=== PATIENT | female | born 1985 | race American Indian/Alaskan Native ===

== ENCOUNTER 2018-08-12 20:10 | Emergency (ER) | payer OTHER ==
[2018-08-12 20:16] VITALS: BP 155/74
--- NOTE | 2018-08-12 20:34 | Emergency Department Report ---
Blank Doc - Documentation Documentation: 33 y/o female comes in rt ankle pain after having a syncopal episode.
--- NOTE | 2018-08-12 21:03 | XRay Report ---
PROCEDURE: XR ANKLE 3+V RT TECHNIQUE: Right ankle radiographs, AP, lateral, and oblique views. HISTORY: right ankle pain COMPARISONS: None . FINDINGS: Fracture (s) and/or Dislocation(s): There is mild degree of irregularity of the posterior margin of distal tibial metaphysis suspicious for a small fracture. . Alignment: Normal . Joint space(s): Normal . Soft tissues: Moderate degree of soft tissue swelling is noted over the lateral malleolus . Bone mineralization: Normal . Foreign bodies: None . Calcaneal spurring: None . IMPRESSION: Possible small fracture involving the posterior margin of distal tibial metaphysis. Clini janes correlation is recommended. CT may be recommended for further evaluation. This document is electronically signed by Rashard Miranda MD., Aug 12 2018 09:01:47 PM ET
[2018-08-12 22:07] LABS: Hematocrit 28.7 % (30.3-42.9); Hemoglobin 8.6 gm/dl (10.1-14.3); Mean Corpuscular HGB Conc 30 % (30-34); Platelet Count 347 K/mm3 (140-440); Red Blood Count 4.72 M/mm3 (3.65-5.03)
[2018-08-12 22:11] LABS: Mean Corpuscular Volume 61 fl (79-97); Red Cell Distribution Width 20.4 % (13.2-15.2)
[2018-08-12 22:24] LABS: Alanine Aminotransferase 7 units/L (7-56); Albumin 4.4 g/dL (3.9-5); BUN/Creatinine Ratio 8; Blood Urea Nitrogen 5 mg/dL (7-17); Calcium 10.8 mg/dL (8.4-10.2); Hemolysis Index 0
[2018-08-13 00:16] LABS: Basophils % (Manual) 0 % (0.0-1.8); Total Cells Counted 100
[2018-08-13 00:17] LABS: Hypochromasia 2+
[2018-08-13 00:18] LABS: Target Cells Few; Tear Drop Cells 1+
[2018-08-13 00:22] LABS: Large Platelets 1+; Platelet Estimate Consistent w Auto
--- NOTE | 2018-08-13 01:06 | Emergency Department Report ---
ED Lower Extremity HPI - General Chief Complaint: Extremity Injury, Lower Stated Complaint: RT ANKLE PAIN Time Seen by Provider: 08/13/18 01:04 Source: patient, family Mode of arrival: Wheelchair Limitations: No Limitations - History of Present Illness Initial Comments: This is a 33-year-old female here reports that she is woken at a gas station and then fell and rolled her right ankle. She complained of ankle pain at 10 out of 10 with swelling. She said this happened today. She also said that she is homeless. Denies any head injury, back pain and abdominal pain. Location: Right ankle Duration: This evening when Quality: Throbbing and aching in Severity: Severe Modifying factors: [Better with rest and aggravated by walking, movement and to touch Context: Rolled her ankle while walking in Mode of transportation: She walked to the ED MD Complaint: ankle injury -: This evening Injury: Ankle: Right (right ankle) Type of Injury: eversion Severity: severe Severity scale (0 -10): 10 Improves With: rest Worsens With: weight bearing, movement, palpation Context: walking Associated Symptoms: able to partially bear weight. denies: snap/pop sensation ( ), swelling, numbness, tingling Treatments Prior to Arrival: NSAIDS - Related Data Previous Rx's Medication Instructions Recorded Last Taken Type Ferrous Sulfate [Feosol 325 MG tab] 325 mg PO BID 30 Days #60 tablet 08/13/18 Unknown Rx Ibuprofen [Motrin] 800 mg PO Q8HR PRN #12 tablet 08/13/18 Unknown Rx Allergies Allergy/AdvReac Type Severity Reaction Status Date / Time acetaminophen [From Tylenol] Allergy Vomiting Verified 08/12/18 20:17 ED Review of Systems ROS: Stated complaint: RT ANKLE PAIN Other details as noted in HPI Constitutional: denies: chills, fever Respiratory: denies: cough, shortness of breath, SOB with exertion, wheezing Cardiovascular: denies: chest pain, palpitations, edema, syncope Gastrointestinal: denies: abdominal pain, nausea, vomiting Musculoskeletal: joint swelling, arthralgia. denies: back pain, myalgia Skin: denies: rash Neurological: denies: headache, weakness, numbness, abnormal gait, vertigo ED Past Medical Hx - Past Medical History Previous Medical History?: No - Surgical History Past Surgical History?: Yes Additional Surgical History: c section, hernia - Family History Family history: hypertension - Social History Smoking Status: Never Smoker Substance Use Type: None - Medications Home Medications: Home Medications Medication Instructions Recorded Confirmed Last Taken Type Ferrous Sulfate [Feosol 325 MG tab] 325 mg PO BID 30 Days #60 tablet 08/13/18 Unknown Rx Ibuprofen [Motrin] 800 mg PO Q8HR PRN #12 tablet 08/13/18 Unknown Rx ED Physical Exam - General Limitations: No Limitations General appearance: alert, in no apparent distress - Head Head exam: Present: atraumatic, normocephalic - Eye Eye exam: Present: normal appearance, PERRL, EOMI Pupils: Present: normal accommodation - ENT ENT exam: Present: normal exam, normal orophraynx, mucous membranes moist, TM's normal bilaterally, normal external ear exam - Neck Neck exam: Present: normal inspection, full ROM. Absent: tenderness, lymphadenopathy - Respiratory Respiratory exam: Present: normal lung sounds bilaterally. Absent: respiratory distress, chest wall tenderness - Cardiovascular Cardiovascular Exam: Present: regular rate, normal rhythm, normal heart sounds. Absent: systolic murmur, diastolic murmur - GI/Abdominal GI/Abdominal exam: Present: soft, normal bowel sounds. Absent: distended, tenderness, guarding, rebound, rigid - Extremities Exam Extremities exam: Present: normal inspection, full ROM (right ankle), tenderness (tender to palpate the right ankle), normal capillary refill, joint swelling (swelling to the right ankle). Absent: pedal edema - Expanded Lower Extremity Exam Right Hip exam: Present: normal inspection, full ROM. Absent: tenderness, swelling Upper Leg exam: Present: normal inspection, full ROM. Absent: tenderness, swelling Knee exam: Present: normal inspection, full ROM, full knee extension. Absent: tenderness, swelling Lower Leg exam: Present: normal inspection, full ROM. Absent: tenderness, swelling, Jeremiah's sign Ankle exam: Present: tenderness, swelling. Absent: normal inspection, full ROM (Limited range of motion right ankle), abrasion, laceration, ecchymosis, deformity, crepidus, dislocation, erythema Foot/Toe exam: Present: normal inspection, full ROM. Absent: tenderness, swelling, abrasion, laceration, ecchymosis, deformity, crepidus, dislocation, erythema, amputation, puncture wound, foreign body, calcaneal tenderness, tenderness at base of 5th metatarsal, nail avulsion, subungual hematoma Neuro vascular tendon exam: Present: no vascular compromise, significant pain with passive ROM of distal joint. Absent: pulse deficit, abnormal cap refill, motor deficit, sensory deficit, tendon deficit, extremity cold to touch, pallor, abnormal 2-point discrimination, decreased fine/light touch, foot drop, peroneal nerve deficit Gait: Positive: observed and normal - Back Exam Back exam: Present: normal inspection, full ROM. Absent: tenderness, CVA tenderness (R), CVA tenderness (L), muscle spasm, paraspinal tenderness, vertebral tenderness, rash noted - Neurological Exam Neurological exam: Present: alert, oriented X3, abnormal gait (abnormal gait due to ankle injury), reflexes normal - Psychiatric Psychiatric exam: Present: normal affect, normal mood - Skin Skin exam: Present: warm, dry, intact, normal color. Absent: rash ED Course Vital Signs 08/12/18 08/12/18 20:13 20:15 Temperature 98.7 F 98.7 F Pulse Rate 92 H 95 H Respiratory 18 18 Rate Blood Pressure 155/74 155/74 O2 Sat by Pulse 100 100 Oximetry - Reevaluation(s) Reevaluation #1: 08/13/18 04:03 Patient given Motrin 800 mg. Emergency room and posterior right ankle splint placed with recheck and patient with good color, movement, sensation and temperature to toes of right foot status post splint placement. - Orthopedic Splinting/Casting Injury #1 Side: right Lower Extremity Injury Location: ankle Lower Extremity Immobilizer: posterior splint Other Orthopedic Equipment: crutches ED Lower Extremity MDM - Lab Data Result diagrams: 08/12/18 20:57 08/12/18 20:57 Lab Results 08/12/18 08/12/18 08/12/18 Range/Units 20:57 20:57 20:57 WBC 10.4 (4.5-11.0) K/mm3 RBC 4.72 (3.65-5.03) M/mm3 Hgb 8.6 L (10.1-14.3) gm/dl Hct 28.7 L (30.3-42.9) % MCV 61 L (79-97) fl MCH 18 L (28-32) pg MCHC 30 (30-34) % RDW 20.4 H (13.2-15.2) % Plt Count 347 (140-440) K/mm3 Add Manual Diff Complete Total Counted 100 Seg Neuts % (Manual) 68.0 (40.0-70.0) % Band Neutrophils % 0 % Lymphocytes % (Manual) 27.0 (13.4-35.0) % Reactive Lymphs % (Man) 0 % Monocytes % (Manual) 4.0 (0.0-7.3) % Eosinophils % (Manual) 1.0 (0.0-4.3) % Basophils % (Manual) 0 (0.0-1.8) % Metamyelocytes % 0 % Myelocytes % 0 % Promyelocytes % 0 % Blast Cells % 0 % Nucleated RBC % Not Reportable Seg Neutrophils # Man 7.1 (1.8-7.7) K/mm3 Band Neutrophils # 0.0 K/mm3 Lymphocytes # (Manual) 2.8 (1.2-5.4) K/mm3 Abs React Lymphs (Man) 0.0 K/mm3 Monocytes # (Manual) 0.4 (0.0-0.8) K/mm3 Eosinophils # (Manual) 0.1 (0.0-0.4) K/mm3 Basophils # (Manual) 0.0 (0.0-0.1) K/mm3 Metamyelocytes # 0.0 K/mm3 Myelocytes # 0.0 K/mm3 Promyelocytes # 0.0 K/mm3 Blast Cells # 0.0 K/mm3 WBC Morphology Not Reportable TNR Hypersegmented Neuts Not Reportable Hyposegmented Neuts Not Reportable Hypogranular Neuts Not Reportable Smudge Cells Not Reportable Toxic Granulation Not Reportable Toxic Vacuolation Not Reportable Dohle Bodies Not Reportable Pelger-Huet Anomaly Not Reportable Altagracia Rods Not Reportable Platelet Estimate Consistent w auto Clumped Platelets Not Reportable Plt Clumps, EDTA Not Reportable Large Platelets 1+ Giant Platelets Not Reportable Platelet Satelliting Not Reportable Plt Morphology Comment Not Reportable RBC Morphology Not Reportable Dimorphic RBCs Not Reportable Polychromasia Not Reportable Hypochromasia 2+ Poikilocytosis Not Reportable Anisocytosis Not Reportable Microcytosis 2+ Macrocytosis Not Reportable Spherocytes Not Reportable Pappenheimer Bodies Not Reportable Sickle Cells Not Reportable Target Cells Few Tear Drop Cells 1+ Ovalocytes Not Reportable Helmet Cells Not Reportable [place] Bodies Not Reportable [place] Rings Not Reportable Cas Cells Not Reportable Bite Cells Not Reportable Crenated Cell Not Reportable Elliptocytes Not Reportable Acanthocytes (Spur) Not Reportable Rouleaux Not Reportable Hemoglobin C Crystals Not Reportable Schistocytes Not Reportable Malaria parasites Not Reportable Hayden Bodies Not Reportable Hem Pathologist Commnt No Sodium 137 (137-145) mmol/L Potassium 4.0 (3.6-5.0) mmol/L Chloride 102.0 (98-107) mmol/L Carbon Dioxide 21 L (22-30) mmol/L Anion Gap 18 mmol/L BUN 5 L (7-17) mg/dL Creatinine 0.6 L (0.7-1.2) mg/dL Estimated GFR > 60 ml/min BUN/Creatinine Ratio 8 % Glucose 109 H (65-100) mg/dL Calcium 10.8 H (8.4-10.2) mg/dL Total Bilirubin 0.70 (0.1-1.2) mg/dL AST 14 (5-40) units/L ALT 7 (7-56) units/L Alkaline Phosphatase 72 (35-129) units/L Total Protein 7.6 (6.3-8.2) g/dL Albumin 4.4 (3.9-5) g/dL Albumin/Globulin Ratio 1.4 % - Radiology Data Radiology results: report reviewed X-ray 3 view right ankle dictated by radiologist's report reviewed by myself. Please see details below Findings [facility] [address] [place] [address] XRay Report Signed Patient: ZURDO COLLAZO MR#: [id number] : 1985 Acct:[id number] Age/Sex: 33 / F ADM Date: 08/12/18 Loc: ED Attending Dr: Ordering Physician: RAMIRO GALLO MD Date of Service: 08/12/18 Procedure(s): XR ankle 3+V RT Accession Number(s): [id number] cc: RAMIRO GALLO MD Fluoro Time In Minutes: PROCEDURE: XR ANKLE 3+V RT TECHNIQUE: Right ankle radiographs, AP, lateral, and oblique views. HISTORY: right ankle pain COMPARISONS: None . FINDINGS: Fracture (s) and/or Dislocation(s): There is mild degree of irregularity of the posterior margin of distal tibial metaphysis suspicious for a small fracture. . Alignment: Normal . Joint space(s): Normal . Soft tissues: Moderate degree of soft tissue swelling is noted over the lateral malleolus . Bone mineralization: Normal . Foreign bodies: None . Calcaneal spurring: None . IMPRESSION: Possible small fracture involving the posterior margin of distal tibial metaphysis. Clinical correlation is recommended. CT may be recommended for further evalu ation. This document is electronically signed by Jasmyne Miranda MD., Aug 12 2018 09:01:47 PM ET Transcribed By: [facility] Dictated By: JASMYNE MIRANDA Electronically Authenticated By: JASMYNE MIRANDA Signed Date/Time: 08/12/182102 DD/ 46 TD/TT: 08/12/182046 - Medical Decision Making This is a 33-year-old female here reports that she injured her right ankle while walking today. She is complaining of pain and swelling to ankle. X-ray of right ankle 3 views dictated by radiologist report reviewed by myself. Please refer to radiology section for details of x-ray report Patient had laboratory studies which show mild anemia which is chronic for patient otherwise stable Assessment/plan 1: Fracture ankle, right-injured today an x-ray shows a fracture. Splint place with recheck. Please refer to procedure note for details. Patient given Motrin 800 mg by mouth emergency room which relieved her pain. She was placed on cru tches with instruction for no weightbearing to right lower extremity and to follow up with orthopedic in 2-3 days and also to follow-up with outside Medical Center. I told patient and her condition worsened but increased pain, tightness and swelling in 2 lower extremity to return to the emergency room [facility]. She voiced understanding. Patient discharged home with prescription for Motrin and her pain is better. 2: Anemia-she said that she is anemic but she is on medication so I will put her on ferrous sulfates - Differential Diagnosis fracture versus dislocation, sprain, strain, MSK pain Critical care attestation.: If time is entered above; I have spent that time in minutes in the direct care of this critically ill patient, excluding procedure time. ED Disposition Clinical Impression: Fracture of ankle, right, closed Qualifiers: Encounter type: initial encounter Qualified Code(s): S82.891A - Other fracture of right lower leg, initial encounter for closed fracture Injury of ankle, right Qualifiers: Encounter type: initial encounter Qualified Code(s): S99.911A - Unspecified injury of right ankle, initial encounter Anemia Qualifiers: Anemia type: unspecified type Qualified Code(s): D64.9 - Anemia, unspecified Disposition: DC-01 TO HOME OR SELFCARE Is pt being admited?: No Does the pt Need Aspirin: No Condition: Stable Instructions: Ankle Fracture (ED), Crutch Instructions (ED), RICE Therapy (ED), Splint Care (ED) Additional Instructions: Follow-up with orthopedic doctor as instructed Please follow rice protocol Please follow up with your primary care physician as instructed and if you do not have one you can follow-up at [facility] Please follow discharge instructions on splint care Please return to the emergency department if condition worsens Take Motrin as prescribed and please ensure that you take this with food as it can cause upset stomach Prescriptions: Ferrous Sulfate [Feosol 325 MG tab] 325 mg PO BID 30 Days #60 tablet Ibuprofen [Motrin] 800 mg PO Q8HR PRN #12 tablet PRN Reason: pain Referrals: PRIMARY CAREMD [Primary Care Provider] - 2-3 Days [facility] [Outside] - 2-3 Days CHRISTINA FERNANDEZ MD [Staff Physician] - 2-3 Days
[2018-08-13] MEDS ORDERED: IBUPROFEN PO ONE (01:27)
== END 2018-08-13 04:42 | disposition home or self-care (01) ==
LOC: ED 20:10
DX: S82.891A Other fracture of right lower leg, initial encounter for closed fracture (principal); D64.9 Anemia, unspecified; Z88.6 Allergy status to analgesic agent; Z98.890 Other specified postprocedural states; W19.XXXA Unspecified fall, initial encounter; Y93.89 Activity, other specified; Y92.89 Other specified places as the place of occurrence of the external cause; Y99.8 Other external cause status
CPT/HCPCS: 36415; 80053; 85007; 85025

== ENCOUNTER 2018-08-14 07:12 | Emergency (ER) | payer SELFPAY ==
[2018-08-14 07:27] VITALS: BP 143/76
[2018-08-14] MEDS ORDERED: IBUPROFEN PO ONE (10:09)
--- NOTE | 2018-08-14 10:18 | Emergency Department Report ---
Chief Complaint: Extremity Problem,Nontraumatic Stated Complaint: right leg pain Time Seen by Provider: 08/14/18 09:28 - HPI History of Present Illness: This is a 33-year-old female who was seen here 2 days ago for ankle fracture. Patient states that she began feeling tingling sensation on her leg. Patient states that that test most of them placed at site. Palpation denies a declines any reinjury. Patient is ambulating with crutches and has removed her splint to the right ankle. - ROS Review of Systems: As noted in HPI. Denies all other symptoms - Exam Vital Signs: Vital Signs 08/14/18 07:27 Temperature 98.5 F Pulse Rate 79 Respiratory 16 Rate Blood Pressure 143/76 [Right] O2 Sat by Pulse 97 Oximetry Physical Exam: GENERAL: Alert and oriented x3, no apparent distress, gait with crutches., atraumatic. HEAD: Head is normocephalic and a-traumatic. EXTREMITIES/MUSCULOSKELETAL: No cyanosis, clubbing, rash, lesions or edema. Full ROM bilaterally. LE Pulses 2+ bilaterally. LE 5+ strength bilaterally. Right leg shows no swelling, no bruising or ecchymosis. No calf tenderness. NEUROLOGIC: The patient is cooperative with no focal neurologic deficits. Normal speech. Normal sensation in bilateral upper and lower extremities, No loss of sensation, SKIN: Warm and dry, No lesions, No ulceration or induration present. MSE screening note: Focused history and physical exam performed. Due to findings the following was ordered: ED Medical Decision Making - Medical Decision Making 33-year-old female who presents with a right ankle fracture. Patient taken out her splint from this pain off the splint application. Splint was reapplied here in the ED today. Post splint evaluation: No Neurovascular deficit, no neurological deficit. Discussed importance of follow-up with the orthopedic doctor. Patient is in no acute respiratory distress. Vital signs are normal. ED Disposition [place] [facility] Clinical Impression: Ankle fracture Disposition: - TO HOME OR SELFCARE Is pt being admited?: No Does the pt Need Aspirin: No Condition: Stable Instructions: Ankle Fracture (ED) Additional Instructions: Make sure to follow up with the primary care physician as discussed. U limited to follow-up with an orthopedic doctor Dr. Wood. Take all your medications as you've been prescribed. If you have any worsening symptoms or develop new symptoms please return to ED immediately. Referrals: CHRISTINA WOOD MD [Staff Physician] - 3-5 Days [place] CATHI WELLS MD [Primary Care Provider] - 3-5 Days Forms: Work/School Release Form(ED) Time of Disposition: 10:24
== END 2018-08-14 11:26 | disposition home or self-care (01) ==
LOC: ED 07:12
DX: S82.891A Other fracture of right lower leg, initial encounter for closed fracture (principal); Z88.6 Allergy status to analgesic agent; X58.XXXA Exposure to other specified factors, initial encounter; Y93.89 Activity, other specified; Y92.89 Other specified places as the place of occurrence of the external cause; Y99.8 Other external cause status

== ENCOUNTER 2019-01-08 01:09 | Emergency (ER) | payer SELFPAY ==
--- NOTE | 2019-01-08 01:51 | XRay Report ---
XR RIGHT ANKLE 3 VIEWS INDICATION / CLINICAL INFORMATION: fall with swelling COMPARISON: Right ankle radiograph 08/12/2018 FINDINGS: BONES / JOINT(S): A punctate, corticated appearing osseous fragment projecting inferior to the latera l malleolus as well as two punctate ossific densities projecting along the medial aspect of the media l malleolus likely represent sequela of prior injury. No definite acute displaced fracture identified . No dislocation. SOFT TISSUES: Diffuse soft tissue swelling about the ankle. ADDITIONAL FINDINGS: None. Signer Name: Beverly Junior MD Signed: 01/08/2019 1:46 AM Workstation Name: [id number]
[2019-01-08] MEDS ORDERED: IBUPROFEN 600 MG TAB PO ONE (02:02)
--- NOTE | 2019-01-08 03:13 | Emergency Department Report ---
ED Lower Extremity HPI - General Chief Complaint: Extremity Injury, Lower Stated Complaint: FELL, RT ANKLE INJURY Source: patient Mode of arrival: Ambulatory Limitations: No Limitations - History of Present Illness Initial Comments: Patient is a 33-year-old Afro-Citizen Of [place] female with no past medical history who presents to the ED with complaint of acute onset persistent severe right ankle pain after she slipped, twisted her right ankle and fell down at work 2 days ago. Patient states that she has had previous injuries on the same right ankle and was worried that she may have fractured a bone again. Patient denies loss of consciousness, dizziness, head or neck injury, chest pain, shortness of breath, back pain, numbness and tingling or weakness of right leg or right ankle and foot. MD Complaint: ankle injury (right) -: Sudden, days(s) (2) Injury: Ankle: Right (ankle pain after a fall) Type of Injury: hyperextension Place: work Severity: severe Severity scale (0 -10): 7 Improves With: nothing Worsens With: weight bearing, movement, palpation Context: fall Associated Symptoms: snap/pop sensation, able to partially bear weight, ambulatory. denies: swelling, numbness, tingling, unable to bear weight - Related Data Previous Rx's Medication Instructions Recorded Last Taken Type Ferrous Sulfate [Feosol 325 MG tab] 325 mg PO BID 30 Days #60 tablet 08/13/18 Unknown Rx Ibuprofen [Motrin] 800 mg PO Q8HR PRN #12 tablet 08/13/18 Unknown Rx Cyclobenzaprine [Flexeril] 10 mg PO Q8H PRN #15 tablet 01/08/19 Unknown Rx Ibuprofen [Motrin] 600 mg PO Q8H PRN #24 tablet 01/08/19 Unknown Rx Allergies Allergy/AdvReac Type Severity Reaction Status Date / Time acetaminophen [From Tylenol] Allergy Vomiting Verified 08/12/18 20:17 morphine Allergy Unknown Verified 01/08/19 01:14 ED Review of Systems ROS: Stated complaint: FELL, RT ANKLE INJURY Other details as noted in HPI Constitutional: denies: chills, fever Eyes: denies: eye pain, eye discharge, vision change ENT: denies: ear pain, throat pain Respiratory: denies: cough, shortness of breath, wheezing Cardiovascular: denies: chest pain, palpitations Endocrine: no symptoms reported Gastrointestinal: denies: abdominal pain, nausea, diarrhea Genitourinary: denies: urgency, dysuria, discharge Musculoskeletal: arthralgia (right ankle pain), myalgia. denies: back pain, joint swelling Skin: denies: rash, lesions Neurological: denies: headache, weakness, paresthesias Psychiatric: denies: anxiety, depression Hematological/Lymphatic: denies: easy bleeding, easy bruising ED Past Medical Hx - Past Medical History Previous Medical History?: Yes Hx Asthma: Yes - Surgical History Past Surgical History?: Yes Additional Surgical History: c section x2, hernia - Social History Smoking Status: Never Smoker Substance Use Type: None - Medications Home Medications: Home Medications Medication Instructions Recorded Confirmed Last Taken Type Ferrous Sulfate [Feosol 325 MG tab] 325 mg PO BID 30 Days #60 tablet 08/13/18 Unknown Rx Ibuprofen [Motrin] 800 mg PO Q8HR PRN #12 tablet 08/13/18 Unknown Rx Cyclobenzaprine [Flexeril] 10 mg PO Q8H PRN #15 tablet 01/08/19 Unknown Rx Ibuprofen [Motrin] 600 mg PO Q8H PRN #24 tablet 01/08/19 Unknown Rx ED Physical Exam - General Limitations: No Limitations General appearance: alert, in no apparent distress - Head Head exam: Present: atraumatic, normocephalic - Eye Eye exam: Present: normal appearance, PERRL, EOMI Pupils: Present: normal accommodation - ENT ENT exam: Present: normal exam, normal orophraynx, mucous membranes moist, TM's normal bilaterally, normal external ear exam - Neck Neck exam: Present: normal inspection, full ROM - Respiratory Respiratory exam: Present: normal lung sounds bilaterally. Absent: respiratory distress, wheezes, rales, rhonchi, chest wall tenderness, accessory muscle use, decreased breath sounds - Cardiovascular Cardiovascular Exam: Present: regular rate, normal rhythm, normal heart sounds. Absent: systolic murmur, diastolic murmur, rubs, gallop - GI/Abdominal GI/Abdominal exam: Present: soft, normal bowel sounds. Absent: tenderness, guarding, rebound, hyperactive bowel sounds, organomegaly - Extremities Exam Extremities exam: Present: normal inspection, full ROM, tenderness (palpable right ankle tenderness), normal capillary refill - Back Exam Back exam: Present: normal inspection, full ROM - Neurological Exam Neurological exam: Present: alert, oriented X3, CN II-XII intact, normal gait, reflexes normal - Psychiatric Psychiatric exam: Present: normal affect, normal mood - Skin Skin exam: Present: warm, dry, intact, normal color. Absent: rash ED Course - Reevaluation(s) Reevaluation #1: 01/08/19 03:11 This is a 33-year-old female who presented to the ED with complaint of right ankle pain after she slipped and fell down at work 2 days ago. In the ED, patient is alert and oriented 3 and is not in distress. Patient was treated for pain in the ED and right ankle x-ray shows no acute fractures or subluxations but chronic changes consistent with an old injury. On reevaluation, patient's pain is well controlled with medication. The patient's right ankle was splinted Tan wrap and patient discharged home on pain medications and muscle relaxants. Patient was advised to follow-up with her primary care physician in 5-7 days for reevaluation or return to the ED immediately if symptoms get worse. ED Lower Extremity MDM - Radiology Data Radiology results: report reviewed, image reviewed The right ankle x-ray shows no acute fractures or subluxations but chronic changes consistent with an old injury. - Medical Decision Making This is a 33-year-old female who presented to the ED with complaint of right ankle pain after she slipped and fell down at work 2 days ago. In the ED, patient is alert and oriented 3 and is not in distress. Patient was treated for pain in the ED and right ankle x-ray shows no acute fractures or subluxations but chronic changes consistent with an old injury. On reevaluation, patient's pain is well controlled with medication. The patient's right ankle was splinted Tan wrap and patient discharged home on pain medications and muscle relaxants. Patient was advised to follow-up with her primary care physician in 5-7 days for reevaluation or return to the ED immediately if symptoms get worse. - Differential Diagnosis ankle sprain; ankle fracture; muscle strain Critical care attestation.: If time is entered above; I have spent that time in minutes in the direct care of this critically ill patient, excluding procedure time. ED Disposition Clinical Impression: Sprain of right ankle Qualifiers: Encounter type: initial encounter Involved ligament of ankle: unspecified ligament Qualified Code(s): S93.401A - Sprain of unspecified ligament of right ankle, initial encounter Muscle strain of right ankle Qualifiers: Encounter type: initial encounter Qualified Code(s): S96.911A - Strain of unspecified muscle and tendon at ankle and foot level, right foot, initial e ncounter Disposition: TO HOME OR SELFCARE Is pt being admited?: No Does the pt Need Aspirin: No Condition: Stable Instructions: Muscle Strain (ED), Ankle Sprain (ED) Additional Instructions: Take medications with food, drink plenty of fluids and follow-up with your primary care physician in 5-7 days for reevaluation. Return to the ED immediately if symptoms get worse. Prescriptions: Cyclobenzaprine [Flexeril] 10 mg PO Q8H PRN #15 tablet PRN Reason: Muscle Spasm Ibuprofen [Motrin] 600 mg PO Q8H PRN #24 tablet PRN Reason: Pain Referrals: PRIMARY CARE, [Primary Care Provider] - 3-5 Days Time of Disposition: 03:14 Print Language: FINNISH
== END 2019-01-08 03:28 | disposition home or self-care (01) ==
LOC: ED 01:09
DX: S93.401A Sprain of unspecified ligament of right ankle, initial encounter (principal); J45.909 Unspecified asthma, uncomplicated; Z88.5 Allergy status to narcotic agent; Z79.899 Other long term (current) drug therapy; W01.198A Fall on same level from slipping, tripping and stumbling with subsequent striking against other object, initial encounter; Y93.89 Activity, other specified; Y92.89 Other specified places as the place of occurrence of the external cause; Y99.8 Other external cause status

== ENCOUNTER 2019-01-09 06:03 | Emergency (ER) | payer SELFPAY ==
[2019-01-09 06:14] VITALS: BP 134/74
--- NOTE | 2019-01-09 07:43 | Emergency Department Report ---
Chief Complaint: Extremity Injury, Lower Stated Complaint: RT ANKLE AND HIP PAIN Time Seen by Provider: 01/09/19 07:37 - HPI History of Present Illness: Rolled ankle last Tuesday at work. Seen in ER last night. Comes with ongoing pain. Did not get meds; or see follow up on her dc papers. - ROS Review of Systems: cv: no cp resp: no sob gen: non ill appearing, no fever mk: ankle pain - Exam Vital Signs: Vital Signs 01/09/19 06:13 Temperature 98.2 F Pulse Rate 75 Respiratory 16 Rate Blood Pressure 134/74 [Right] O2 Sat by Pulse 100 Oximetry No medical emergency; seen last night Physical Exam: neurovascular intact non ill appearing MSE screening note: Focused history and physical exam performed. Due to findings the following was ordered: No life threat simple ankle strain educated on plan of care as developed last night ED Disposition for MSE Clinical Impression: Sprain of right ankle Disposition: DC-01 TO HOME OR SELFCARE Is pt being admited?: No Does the pt Need Aspirin: No Additional Instructions: ice elevate continue meds given last pm Referrals: CHRISTINA FERNANDEZ MD [Staff Physician] - 3-5 Days Time of Disposition: 07:43
== END 2019-01-09 07:48 | disposition home or self-care (01) ==
LOC: ED 06:03
DX: M25.571 Pain in right ankle and joints of right foot (principal)

== ENCOUNTER 2019-01-12 08:24 | Emergency (ER) | payer SELFPAY ==
[2019-01-12 08:40] VITALS: BP 152/47
--- NOTE | 2019-01-12 10:24 | Emergency Department Report ---
ED Lower Extremity HPI - General Chief Complaint: Extremity Problem,Nontraumatic Stated Complaint: HURT ANKLE/SWOLLEN Time Seen by Provider: 01/12/19 10:20 Source: patient Mode of arrival: Ambulatory Limitations: No Limitations - History of Present Illness Initial Comments: Patient reports she injured her right ankle one week ago from a fall. She report s she initially injured her right ankle 08/13/2018 and has a scheduled appointment with orthopedic 01/23/2019. Complaint: ankle injury (right) Onset/Timin -: week(s) Injury: Ankle: Right Type of Injury: unknown Severity: severe Severity scale (0 -10): 8 Improves With: immobilization Worsens With: weight bearing Context: fall Other Symptoms: other (none) Associated Symptoms: swelling, able to partially bear weight Treatments Prior to Arrival: other (none) - Related Data Previous Rx's Medication Instructions Recorded Last Taken Type Ferrous Sulfate [Feosol 325 MG tab] 325 mg PO BID 30 Days #60 tablet 08/13/18 Unknown Rx Ibuprofen [Motrin] 800 mg PO Q8HR PRN #12 tablet 08/13/18 Unknown Rx Cyclobenzaprine [Flexeril] 10 mg PO Q8H PRN #15 tablet 01/08/19 Unknown Rx Ibuprofen [Motrin] 600 mg PO Q8H PRN #24 tablet 01/08/19 Unknown Rx Naproxen [EC-Naproxen] 375 mg PO BID #20 tablet. 01/12/19 Unknown Rx Allergies Allergy/AdvReac Type Severity Reaction Status Date / Time acetaminophen [From Tylenol] Allergy Vomiting Verified 08/12/18 20:17 morphine Allergy Unknown Verified 01/08/19 01:14 ibuprofen [From Motrin IB] AdvReac Nausea Verified 01/09/19 06:10 ED Review of Systems ROS: Stated complaint: HURT ANKLE/SWOLLEN Other details as noted in HPI Constitutional: denies: chills, fever Eyes: denies: eye pain, eye discharge, vision change ENT: denies: ear pain, throat pain Respiratory: denies: cough, orthopnea, shortness of breath, SOB with exertion, SOB at rest, stridor, wheezing Cardiovascular: denies: chest pain, palpitations Endocrine: no symptoms reported Gastrointestinal: denies: abdominal pain, nausea, diarrhea Genitourinary: denies: urgency, dysuria, discharge Musculoskeletal: joint swelling (right ankle and foot), arthralgia (right ankle and foot). denies: back pain Skin: denies: rash, lesions Neurological: denies: headache, weakness, paresthesias Psychiatric: denies: anxiety, depression Hematological/Lymphatic: denies: easy bleeding, easy bruising ED Past Medical Hx - Past Medical History Previous Medical History?: Yes Hx Asthma: Yes - Surgical History Past Surgical History?: Yes Additional Surgical History: c section x2, hernia - Social History Smoking Status: Never Smoker Substance Use Type: None - Medications Home Medications: Home Medications Medication Instructions Recorded Confirmed Last Taken Type Ferrous Sulfate [Feosol 325 MG tab] 325 mg PO BID 30 Days #60 tablet 08/13/18 Unknown Rx Ibuprofen [Motrin] 800 mg PO Q8HR PRN #12 tablet 08/13/18 Unknown Rx Cyclobenzaprine [Flexeril] 10 mg PO Q8H PRN #15 tablet 01/08/19 Unknown Rx Ibuprofen [Motrin] 600 mg PO Q8H PRN #24 tablet 01/08/19 Unknown Rx Naproxen [EC-Naproxen] 375 mg PO BID #20 tablet. 01/12/19 Unknown Rx ED Physical Exam - General Limitations: No Limitations General appearance: alert, in no apparent distress - Respiratory Respiratory exam: Present: normal lung sounds bilaterally. Absent: respiratory distress, wheezes, rales, rhonchi, stridor, chest wall tenderness, accessory muscle use, decreased breath sounds, prolonged expiratory - Cardiovascular Cardiovascular Exam: Present: regular rate, normal rhythm, normal heart sounds. Absent: systolic murmur, diastolic murmur, rubs, gallop - Expanded Lower Extremity Exam Right Hip exam: Present: normal inspection, full ROM Upper Leg exam: Present: normal inspection, full ROM Knee exam: Present: normal inspection, full ROM Lower Leg exam: Present: normal inspection, full ROM Ankle exam: Present: full ROM, tenderness (medial and lateral), swelling Foot/Toe exam: Present: full ROM, tenderness (dorsal ), swelling. Absent: abrasion, laceration, ecchymosis, deformity, crepidus, dislocation, erythema, amputation, puncture wound, foreign body, calcaneal tenderness, tenderness at base of 5th metatarsal, nail avulsion, subungual hematoma Neuro vascular tendon exam: Present: no vascular compromise. Absent: pulse deficit, abnormal cap refill, motor deficit, sensory deficit, tendon deficit, extremity cold to touch, pallor, abnormal 2-point discrimination, decreased fine/light touch, foot drop, peroneal nerve deficit Gait: Positive: not tested/not observed - Neurological Exam Neurological exam: Present: alert, oriented X3, CN II-XII intact, normal gait, reflexes normal. Absent: motor sensory deficit - Psychiatric Psychiatric exam: Present: normal affect, normal mood - Skin Skin exam: Present: warm, dry, intact, normal color. Absent: rash ED Course Vital Signs 01/12/19 08:38 Temperature 98.1 F Pulse Rate 76 Respiratory 18 Rate Blood Pressure 152/47 O2 Sat by Pulse 98 Oximetry - Reevaluation(s) Reevaluation #1: 01/12/19 10:24 radiology studies ordered ED Lower Extremity MDM - Radiology Data Radiology results: image reviewed RIGHT ANKLE, 3 VIEWS INDICATION: pain with swelling. COMPARISON: None. IMPRESSION: There is severe diffuse soft tissue swelling or edema. No acute osseous findings or joint pathology is identified. RIGHT FOOT, 3 VIEWS INDICATION: pain with swelling. COMPARISON: None. IMPRESSION: Mild diffuse soft tissue swelling. No acute osseous findings or joint pathology. - Medical Decision Making During the course of ED, radiology studies were ordered. The studies revealed mild diffuse soft tissue swelling. No acute osseous findings or joint pathology. There is severe diffuse soft tissue swelling or edema. No acute osseous findings or joint pathology is identified. Patient was given an sheyla wrap, prescription for Naproxen, instructed to follow up with scheduled appointment 01/23/2019. She verbalized understanding - Differential Diagnosis Right ankle and foot pain, Fracture Critical care attestation.: If time is entered above; I have spent that time in minutes in the direct care of this critically ill patient, excluding procedure time. ED Disposition Clinical Impression: Right foot pain Right ankle pain Qualifiers: Chronicity: acute Qualified Code(s): M25.571 - Pain in right ankle and joints of right foot Disposition: DC-01 TO HOME OR SELFCARE Is pt being admited?: No Does the pt Need Aspirin: No Condition: Stable Instructions: Arthralgia (ED) Additional Instructions: Wear sheyla wrap for comfort. Take medication as directed. Follow up with scheduled orthopedic 01/23/2019 Prescriptions: Naproxen [EC-Naproxen] 375 mg PO BID #20 tablet. Referrals: PRIMARY CARE,MD [Primary Care Provider] - 3-5 Days CHRISTINA FERNANDEZ MD [Staff Physician] - 3-5 Days Forms: Work/School Release Form(ED) Time of Disposition: 11:04
--- NOTE | 2019-01-12 10:35 | XRay Report ---
RIGHT ANKLE, 3 VIEWS INDICATION: pain with swelling. COMPARISON: None. IMPRESSION: There is severe diffuse soft tissue swelling or edema. No acute osseous findings or marlin nt pathology is identified. RIGHT FOOT, 3 VIEWS INDICATION: pain with swelling. COMPARISON: None. IMPRESSION: Mild diffuse soft tissue swelling. No acute osseous findings or joint pathology. Signer Name: Tj Larkin Jr, MD Signed: 01/12/2019 10:31 AM Workstation Name: [id number]
== END 2019-01-12 11:29 | disposition home or self-care (01) ==
LOC: ED 08:24
DX: M25.571 Pain in right ankle and joints of right foot (principal); J45.909 Unspecified asthma, uncomplicated

== ENCOUNTER 2019-01-26 14:41 | Emergency (ER) | payer SELFPAY ==
[2019-01-26 15:18] VITALS: BP 137/76
--- NOTE | 2019-01-26 15:18 | Emergency Department Report ---
ED Lower Extremity HPI - General Chief Complaint: Extremity Injury, Lower Stated Complaint: RT ANKLE PAIN Time Seen by Provider: 01/26/19 15:17 Source: patient Mode of arrival: Ambulatory Limitations: No Limitations - History of Present Illness Initial Comments: Dx with ankle sprain earlier this month and F/u at [facility] yesterday where she was DX with avulsion fx of ankle and placed in cast. Pt unable to use the crutches so she has been walking on the cast and now c/o of cast becoming unwraped and mild ankle pain. No fever or chills no numbness or tingling. Complaint: ankle injury Injury: Ankle: Right Type of Injury: inversion Place: home Severity scale (0 -10): 1 Improves With: nothing Worsens With: nothing Associated Symptoms: able to partially bear weight. denies: numbness - Related Data Previous Rx's Medication Instructions Recorded Last Taken Type Ferrous Sulfate [Feosol 325 MG tab] 325 mg PO BID 30 Days #60 tablet 08/13/18 Unknown Rx Ibuprofen [Motrin] 800 mg PO Q8HR PRN #12 tablet 08/13/18 Unknown Rx Cyclobenzaprine [Flexeril] 10 mg PO Q8H PRN #15 tablet 01/08/19 Unknown Rx Ibuprofen [Motrin] 600 mg PO Q8H PRN #24 tablet 01/08/19 Unknown Rx Naproxen [EC-Naproxen] 375 mg PO BID #20 tablet. 01/12/19 Unknown Rx Allergies Allergy/AdvReac Type Severity Reaction Status Date / Time acetaminophen [From Tylenol] Allergy Vomiting Verified 08/12/18 20:17 morphine Allergy Unknown Verified 01/08/19 01:14 ibuprofen [From Motrin IB] AdvReac Nausea Verified 01/09/19 06:10 ED Review of Systems ROS: Stated complaint: RT ANKLE PAIN Other details as noted in HPI Comment: All other systems reviewed and negative ED Past Medical Hx - Past Medical History Hx Asthma: Yes - Surgical History Additional Surgical History: c section x2, hernia - Social History Smoking Status: Never Smoker Substance Use Type: None - Medications Home Medications: Home Medications Medication Instructions Recorded Confirmed Last Taken Type Ferrous Sulfate [Feosol 325 MG tab] 325 mg PO BID 30 Days #60 tablet 08/13/18 Unknown Rx Ibuprofen [Motrin] 800 mg PO Q8HR PRN #12 tablet 08/13/18 Unknown Rx Cyclobenzaprine [Flexeril] 10 mg PO Q8H PRN #15 tablet 01/08/19 Unknown Rx Ibuprofen [Motrin] 600 mg PO Q8H PRN #24 tablet 01/08/19 Unknown Rx Naproxen [EC-Naproxen] 375 mg PO BID #20 tablet. 01/12/19 Unknown Rx ED Physical Exam - General Limitations: No Limitations - Head Head exam: Present: atraumatic, normocephalic - Eye Eye exam: Present: normal appearance - Extremities Exam Extremities exam: Present: tenderness, normal capillary refill, other (right ankle pain. amulatory while wearing cast. pulse 2+. Cap refill brisk). Absent: calf tenderness - Neurological Exam Neurological exam: Present: CN II-XII intact ED Course Vital Signs 01/26/19 15:16 Temperature 98.5 F Pulse Rate 106 H Respiratory 18 Rate Blood Pressure 137/76 O2 Sat by Pulse 100 Oximetry - Procedure Description Procedures done: changed from Cast to a walking boot. Critical care attestation.: If time is entered above; I have spent that time in minutes in the direct care of this critically ill patient, excluding procedure time. ED Disposition Clinical Impression: Cast discomfort, Ankle injuries Disposition: -01 TO HOME OR SELFCARE Is pt being admited?: No Does the pt Need Aspirin: No Instructions: Ankle Stirrup Splint (ED) Referrals: CHRISTINA FERNANDEZ MD [Staff Physician] - 3-5 Days
== END 2019-01-26 17:50 | disposition home or self-care (01) ==
LOC: ED 14:41
DX: S82.891A Other fracture of right lower leg, initial encounter for closed fracture (principal); J45.909 Unspecified asthma, uncomplicated; Z79.899 Other long term (current) drug therapy; Z88.5 Allergy status to narcotic agent; W01.198A Fall on same level from slipping, tripping and stumbling with subsequent striking against other object, initial encounter; Y93.01 Activity, walking, marching and hiking; Y92.098 Other place in other non-institutional residence as the place of occurrence of the external cause; Y99.8 Other external cause status
CPT/HCPCS: 99282

== ENCOUNTER 2019-01-29 18:50 | Emergency (ER) | payer SELFPAY ==
[2019-01-29 19:27] VITALS: BP 155/55
--- NOTE | 2019-01-29 19:40 | Emergency Department Report ---
Blank Doc - Documentation Documentation: 34-year-old female that presents right leg pain. Stated has a splint placed. This initial assessment/diagnostic orders/clinical plan/treatment(s) is/are subject to change based on patient's health status, clinical progression and re- assessment by fellow clinical providers in the ED. Further treatment and workup at subsequent clinical providers discretion. Patient/guardians urged not to elope from the ED as their condition may be serious if not clinically assessed and managed. Initial orders include: 1- Patient sent to [facility] for further evaluation and treatment
--- NOTE | 2019-01-29 21:40 | Emergency Department Report ---
ED General Adult HPI - General Chief complaint: Extremity Problem,Nontraumatic Stated complaint: RT LEG BACK SWELLING/PAIN Time Seen by Provider: 01/29/19 19:38 Source: patient Mode of arrival: Ambulatory Limitations: No Limitations - History of Present Illness Initial comments: 34-year-old [place] female presents emergency department for reevaluation of her right lower extremity splint. She was seen a few days ago at this present reapplied as it had callosities integrity due to her consistent ambulating on the splint and still in place of utilizing crutches. This time she returns stating that the splint was tight causing some tingling to her toes and a little swelling so she had to undo the Tan wrap to resolve this cyst symptoms so she returns to have it reapplied. There is no new injury no new pain no worsening symptoms. Her previous symptoms were resolved once the Tan wrap was released. Radiation: non-radiation Consistency: constant - Related Data Previous Rx's Medication Instructions Recorded Last Taken Type Ferrous Sulfate [Feosol 325 MG tab] 325 mg PO BID 30 Days #60 tablet 08/13/18 Unknown Rx Ibuprofen [Motrin] 800 mg PO Q8HR PRN #12 tablet 08/13/18 Unknown Rx Cyclobenzaprine [Flexeril] 10 mg PO Q8H PRN #15 tablet 01/08/19 Unknown Rx Ibuprofen [Motrin] 600 mg PO Q8H PRN #24 tablet 01/08/19 Unknown Rx Naproxen [EC-Naproxen] 375 mg PO BID #20 tablet. 01/12/19 Unknown Rx Allergies Allergy/AdvReac Type Severity Reaction Status Date / Time acetaminophen [From Tylenol] Allergy Vomiting Verified 08/12/18 20:17 morphine Allergy Unknown Verified 01/08/19 01:14 ibuprofen [From Motrin IB] AdvReac Nausea Verified 01/09/19 06:10 ED Review of Systems ROS: Stated complaint: RT LEG BACK SWELLING/PAIN Other details as noted in HPI Comment: All other systems reviewed and negative ED Past Medical Hx - Past Medical History Hx Asthma: Yes - Surgical History Additional Surgical History: c section x2, hernia - Social History Smoking Status: Never Smoker Substance Use Type: None - Medications Home Medications: Home Medications Medication Instructions Recorded Confirmed Last Taken Type Ferrous Sulfate [Feosol 325 MG tab] 325 mg PO BID 30 Days #60 tablet 08/13/18 Unknown Rx Ibuprofen [Motrin] 800 mg PO Q8HR PRN #12 tablet 08/13/18 Unknown Rx Cyclobenzaprine [Flexeril] 10 mg PO Q8H PRN #15 tablet 01/08/19 Unknown Rx Ibuprofen [Motrin] 600 mg PO Q8H PRN #24 tablet 01/08/19 Unknown Rx Naproxen [EC-Naproxen] 375 mg PO BID #20 tablet. 01/12/19 Unknown Rx ED Physical Exam - General Limitations: No Limitations General appearance: alert, in no apparent distress - Head Head exam: Present: atraumatic, normocephalic - Eye Eye exam: Present: normal appearance - ENT ENT exam: Present: mucous membranes moist - Neck Neck exam: Present: normal inspection - Respiratory Respiratory exam: Present: normal lung sounds bilaterally. Absent: respiratory distress - Cardiovascular Cardiovascular Exam: Present: regular rate, normal rhythm. Absent: systolic murmur, diastolic murmur, rubs, gallop - GI/Abdominal GI/Abdominal exam: Present: soft, normal bowel sounds - Extremities Exam Extremities exam: Present: normal inspection, tenderness (right lower extremity pulses 2+ no cyanosis no clubbing. Capillary refill is brisk.) - Back Exam Back exam: Present: normal inspection - Neurological Exam Neurological exam: Present: alert, oriented X3 - Psychiatric Psychiatric exam: Present: normal affect, normal mood - Skin Skin exam: Present: warm, dry, intact, normal color. Absent: rash ED Course Vital Signs 01/29/19 19:20 Temperature 98.9 F Pulse Rate 103 H Respiratory 18 Rate Blood Pressure 155/55 O2 Sat by Pulse 100 Oximetry - Procedure Description Procedures done: Splint was reapplied. Pulses 2+ capillary refills are brisk. Critical care attestation.: If time is entered above; I have spent that time in minutes in the direct care of this critically ill patient, excluding procedure time. ED Disposition Clinical Impression: Cast discomfort Disposition: DC-01 TO HOME OR SELFCARE Is pt being admited?: No Does the pt Need Aspirin: No Condition: Stable Referrals: CHRISTINA FERNANDEZ MD [Staff Physician] - 3-5 Days
[2019-01-29] MEDS ORDERED: traMADol 50 MG TAB PO STA (22:39)
[2019-01-29] MEDS ORDERED: traMADol 50 MG TAB ONE (22:42)
== END 2019-01-29 23:00 | disposition home or self-care (01) ==
LOC: ED 18:50
DX: M25.571 Pain in right ankle and joints of right foot (principal); J45.909 Unspecified asthma, uncomplicated; Z88.5 Allergy status to narcotic agent

== ENCOUNTER 2019-01-30 08:52 | Emergency (ER) | payer OTHER ==
[2019-01-30 09:05] VITALS: BP 135/53
--- NOTE | 2019-01-30 09:55 | Emergency Department Report ---
ED Lower Extremity HPI - General Chief Complaint: Extremity Problem,Nontraumatic Stated Complaint: RT FOOT SPLINT TIGHT/PAIN Time Seen by Provider: 01/30/19 09:27 Source: patient Mode of arrival: Ambulatory Limitations: No Limitations - History of Present Illness Initial Comments: This is a 34-year-old -[place] female who presents to the emergency room complaining of discomfort from splint. Patient states she was here last night and had splint replaced but complains it is too tight. Patient injured her right ankle in January with no orthopedic surgeon follow-up as instructed. She denies injury. Complaint: ankle injury (right) Onset/Timin -: days(s) Injury: Ankle: Right Place: street/outdoors Severity: moderate Severity scale (0 -10): 6 Improves With: nothing Worsens With: movement - Related Data Previous Rx's Medication Instructions Recorded Last Taken Type Ferrous Sulfate [Feosol 325 MG tab] 325 mg PO BID 30 Days #60 tablet 08/13/18 Unknown Rx Ibuprofen [Motrin] 800 mg PO Q8HR PRN #12 tablet 08/13/18 Unknown Rx Cyclobenzaprine [Flexeril] 10 mg PO Q8H PRN #15 tablet 01/08/19 Unknown Rx Ibuprofen [Motrin] 600 mg PO Q8H PRN #24 tablet 01/08/19 Unknown Rx Naproxen [EC-Naproxen] 375 mg PO BID #20 tablet. 01/12/19 Unknown Rx Allergies Allergy/AdvReac Type Severity Reaction Status Date / Time acetaminophen [From Tylenol] Allergy Vomiting Verified 08/12/18 20:17 morphine Allergy Unknown Verified 01/08/19 01:14 ibuprofen [From Motrin IB] AdvReac Nausea Verified 01/09/19 06:10 ED Review of Systems ROS: Stated complaint: RT FOOT SPLINT TIGHT/PAIN Other details as noted in HPI Constitutional: denies: chills, fever Respiratory: denies: cough, shortness of breath, wheezing Cardiovascular: denies: chest pain, palpitations Gastrointestinal: denies: abdominal pain, nausea, diarrhea Musculoskeletal: arthralgia (right ankle pain). denies: back pain, joint swelling Skin: denies: rash, lesions Neurological: denies: headache, weakness, paresthesias Psychiatric: denies: anxiety, depression ED Past Medical Hx - Past Medical History Previous Medical History?: Yes Hx Asthma: Yes - Surgical History Past Surgical History?: Yes Additional Surgical History: c section x2, hernia - Social History Smoking Status: Never Smoker Substance Use Type: None - Medications Home Medications: Home Medications Medication Instructions Recorded Confirmed Last Taken Type Ferrous Sulfate [Feosol 325 MG tab] 325 mg PO BID 30 Days #60 tablet 08/13/18 Unknown Rx Ibuprofen [Motrin] 800 mg PO Q8HR PRN #12 tablet 08/13/18 Unknown Rx Cyclobenzaprine [Flexeril] 10 mg PO Q8H PRN #15 tablet 01/08/19 Unknown Rx Ibuprofen [Motrin] 600 mg PO Q8H PRN #24 tablet 01/08/19 Unknown Rx Naproxen [EC-Naproxen] 375 mg PO BID #20 tablet. 01/12/19 Unknown Rx ED Physical Exam - General Limitations: No Limitations General appearance: alert, in no apparent distress - Respiratory Respiratory exam: Present: normal lung sounds bilaterally. Absent: respiratory distress - Cardiovascular Cardiovascular Exam: Present: regular rate, normal rhythm. Absent: systolic murmur, diastolic murmur, rubs, gallop - GI/Abdominal GI/Abdominal exam: Present: soft, normal bowel sounds - Extremities Exam Extremities exam: Present: other (RLE pulses 2+, no cyanosis no clubbing, & capillary refill is brisk) - Neurological Exam Neurological exam: Present: alert, oriented X3, normal gait - Psychiatric Psychiatric exam: Present: normal affect, normal mood - Skin Skin exam: Present: warm, dry, intact, normal color. Absent: rash ED Course Vital Signs 01/30/19 09:02 Temperature 98.3 F Pulse Rate 89 Respiratory 18 Rate Blood Pressure 135/53 O2 Sat by Pulse 100 Oximetry ED Lower Extremity MDM - Medical Decision Making Patient was examined by me. Patient is nontoxic appearing and stable. Vitals are normal. RLE pulses 2+, no cyanosis no clubbing, & capillary refill is brisk. Splint applied. Referral to orthopedic surgeon. Follow up with orthopedic surgeon. Patient discharged home in stable condition. Critical care attestation.: If time is entered above; I have spent that time in minutes in the direct care of this critically ill patient, excluding procedure time. ED Disposition Clinical Impression: Cast discomfort Disposition: DC-01 TO HOME OR SELFCARE Is pt being admited?: No Condition: Stable Instructions: Splint Care (ED) Additional Instructions: Avoid applying weight to right leg. Follow-up with orthopedic surgeon for care right ankle injury. Referrals: CHRISTINA FERNANDEZ MD [Staff Physician] - 3-5 Days [facility] [Provider Group] - 3-5 Days [facility] [Outside] - 3-5 Days Time of Disposition: 10:00
== END 2019-01-30 10:06 | disposition home or self-care (01) ==
LOC: ED 08:52
DX: S99.911A Unspecified injury of right ankle, initial encounter (principal); J45.909 Unspecified asthma, uncomplicated; Z79.899 Other long term (current) drug therapy; Z88.6 Allergy status to analgesic agent; X58.XXXA Exposure to other specified factors, initial encounter; Y93.89 Activity, other specified; Y92.89 Other specified places as the place of occurrence of the external cause; Y99.8 Other external cause status